=== PATIENT | female | born 1990 | race Caucasian/White ===

== ENCOUNTER 2017-05-07 15:51 | Inpatient (IN) | payer OTHER ==
[2017-05-07] MEDS: LACTATED RINGER'S 1,000 ML IV* ×3 (16:41→19:58)
[2017-05-07] MEDS ORDERED: LACTATED RINGER'S 1,000 ML IV* (18:00)
[2017-05-08] MEDS: LACTATED RINGER'S 1,000 ML IV* (02:42)
== END 2017-05-08 09:00 | disposition home or self-care (01) | DRG 782 ==
LOC: L-D 05-08 06:28 → OBT 15:51 → L-D 15:53 → OBT 17:50 → L-D 17:50
DX: O41.03X0 Oligohydramnios, third trimester, not applicable or unspecified (principal); Z3A.32 32 weeks gestation of pregnancy
CPT/HCPCS: 36415; 76816; 96360

== ENCOUNTER 2017-05-09 13:20 | Inpatient (IN) | payer OTHER ==
[2017-05-09] MEDS: LACTATED RINGER'S 1,000 ML IV ×4 (14:17→22:58)
[2017-05-09 17:37] LABS: ADD UMIC YES; UR ASCORBIC ACID NEGATIVE (NEGATIVE); UR BILIRUBIN (Dip) NEGATIVE (NEGATIVE); UR BLOOD (Dip) NEGATIVE (NEGATIVE); UR CLARITY CLEAR (CLEAR); UR COLOR COLORLESS (YELLOW); UR GLUCOSE (Dip) NEGATIVE (NEGATIVE); UR KETONES (Dip) TRACE mg/dL (NEGATIVE); UR LEUKOCYTE ESTERASE (Dip) 2+ Leu/ul (NEGATIVE); UR NITRITE (Dip) NEGATIVE (NEGATIVE); UR RBC 0 /HPF (0-5); UR SPECIFIC GRAVITY (Dip) 1.002 (1.003-1.030); UR TOTAL PROTEIN (Dip) NEGATIVE (NEGATIVE); UR UROBILINOGEN (Dip) NEGATIVE (NEGATIVE); UR WBC 2 /HPF (0-5)
[2017-05-10] MEDS: LACTATED RINGER'S 1,000 ML IV ×2 (05:13→11:53)
[2017-05-10] MEDS: FERROUS SULFATE (EC) 325 MG TAB PO (08:45)
[2017-05-10] MEDS: PRENATAL VITAMIN PO (08:46)
[2017-05-10] MEDS: BETAMET NA PHOS/AC(6 MG/ML) 5ML INJ IM (14:40)
[2017-05-10] MEDS: SOD CHLORIDE 0.9% 1,000 ML IV (18:50)
[2017-05-11] MEDS: SOD CHLORIDE 0.9% 1,000 ML IV ×4 (01:07→22:16)
[2017-05-11] MEDS: FERROUS SULFATE (EC) 325 MG TAB PO (09:45)
[2017-05-11] MEDS: PRENATAL VITAMIN PO (09:45)
[2017-05-11] MEDS: BETAMET NA PHOS/AC(6 MG/ML) 5ML INJ IM (14:37)
[2017-05-11] MEDS: LACTATED RINGER'S 1,000 ML IV (22:30)
[2017-05-12] MEDS: SOD CHLORIDE 0.9% 1,000 ML IV ×3 (04:34→17:25)
[2017-05-12] MEDS: LACTATED RINGER'S 1,000 ML IV ×4 (05:10→23:52)
[2017-05-12] MEDS: PRENATAL VITAMIN PO (09:05)
[2017-05-12] MEDS: FERROUS SULFATE (EC) 325 MG TAB PO (09:05)
[2017-05-13] MEDS: SOD CHLORIDE 0.9% 1,000 ML IV ×2 (00:20→07:00)
[2017-05-13] MEDS: LACTATED RINGER'S 1,000 ML IV (07:08)
[2017-05-13] MEDS: FERROUS SULFATE (EC) 325 MG TAB PO (08:38)
[2017-05-13] MEDS: PRENATAL VITAMIN PO (08:39)
== END 2017-05-13 11:42 | disposition home or self-care (01) | DRG 782 ==
LOC: PP1 13:20
DX: O41.03X0 Oligohydramnios, third trimester, not applicable or unspecified (principal); Z3A.32 32 weeks gestation of pregnancy
CPT/HCPCS: 76815; 76816; 76817; 76818; 81001; 87086

== ENCOUNTER 2017-05-23 16:56 | Inpatient (IN) | payer OTHER ==
[2017-05-23] MEDS ORDERED: AL HYDROX/MG HYDROX/SIMETH 30 ML CUP PO (17:30)
[2017-05-23] MEDS: LACTATED RINGER'S 1,000 ML IV (17:57)
[2017-05-24] MEDS: LACTATED RINGER'S 1,000 ML IV ×2 (00:39→06:47)
[2017-05-24] MEDS: FERROUS SULFATE (EC) 325 MG TAB PO (09:16)
[2017-05-24] MEDS: DOCUSATE SODIUM 100 MG CAP PO (09:16)
[2017-05-24] MEDS: PRENATAL VITAMIN PO (09:22)
== END 2017-05-24 13:10 | disposition home or self-care (01) | DRG 782 ==
LOC: PP1 16:56
DX: O41.03X0 Oligohydramnios, third trimester, not applicable or unspecified (principal); Z3A.29 29 weeks gestation of pregnancy
CPT/HCPCS: 76818

== ENCOUNTER 2017-05-26 09:01 | Outpatient (CLI) | payer OTHER | END 2017-05-26 11:20 | disposition home or self-care (01) | LOC: OBT 09:01 → L-D 09:03 → OBT 11:20 | DX: O41.03X0 Oligohydramnios, third trimester, not applicable or unspecified (principal); Z3A.34 34 weeks gestation of pregnancy | CPT/HCPCS: 76818; 99464 ==

== ENCOUNTER 2017-06-10 09:24 | Inpatient (IN) | payer OTHER ==
[2017-06-10] MEDS ORDERED: METHYLERGONOVINE 0.2 MG INJ IM (11:30)
[2017-06-10] MEDS ORDERED: CARBOPROST 250 MCG INJ IM (11:30)
[2017-06-10] MEDS ORDERED: OXYTOCIN 30 UNITS/LR 500 ML IV ×2 (11:30)
[2017-06-10] MEDS ORDERED: MISOPROSTOL 200 MCG TAB PR (11:30)
[2017-06-10] MEDS ORDERED: LIDOCAINE 1% (MPF) 30 ML INJ INJ (11:30)
[2017-06-10 11:50] LABS: ADD MAN DIFF? NO
[2017-06-10 11:51] LABS: WHITE BLOOD COUNT 8.4 10^3/ul (4.8-10.8)
[2017-06-10 11:51] LABS: BASOPHILS % 0.2 % (0.0-2.0); EOSINOPHILS % 0.1 % (0.0-7.0); HEMOGLOBIN 10.9 g/dl (12.0-16.0); LYMPHOCYTES # 1.4 10^3/ul (0.8-2.9); LYMPHOCYTES % 16.8 % (15.0-51.0); MEAN CORPUSCULAR HEMOGLOBIN 28.9 pg (29.0-33.0); MEAN CORPUSCULAR HGB CONC 32.1 g/dl (32.0-37.0); MEAN CORPUSCULAR VOLUME 90.2 fl (82.0-101.0); MEAN PLATELET VOLUME 11.5 fl (7.4-10.4); MONOCYTE # 0.4 10^3/ul (0.3-0.9); MONOCYTES % 4.5 % (0.0-11.0); NEUTROPHIL # 6.4 10^3/ul (1.6-7.5); PLATELET COUNT 194 10^3/UL (140-415); RED BLOOD COUNT 3.77 10^6/ul (4.20-5.40); RED CELL DISTRIBUTION WIDTH 21.3 % (11.5-14.5)
[2017-06-10 12:28] LABS: INR 0.86; PROTIME 11.8 Sec (11.9-14.9); PT RATIO 0.9
[2017-06-10 12:29] LABS: PARTIAL THROMBOPLASTIN TIME 25.5 Sec (25.0-35.0)
[2017-06-10 12:55] LABS: HEPATITIS B SURFACE ANTIGEN NEGATIVE (NEGATIVE)
[2017-06-10] MEDS: MISOPROSTOL 25 MCG CAPSULE PO ×3 (12:55→21:00)
[2017-06-10] MEDS: LACTATED RINGER'S 1,000 ML IV ×2 (12:55→18:49)
[2017-06-10 14:54] LABS: RAPID PLASMA REAGIN NONREACTIVE (NR)
[2017-06-10] MEDS: BUTORPHANOL 2 MG INJ IV (23:20)
[2017-06-11] MEDS: LACTATED RINGER'S 1,000 ML IV ×2 (00:58→01:48)
[2017-06-11] MEDS: MISOPROSTOL 25 MCG CAPSULE PO ×3 (01:00→09:00)
[2017-06-11] MEDS ORDERED: FENTAnyl 2MCG/ML-ROPIV 0.2% 100 ML (01:42)
[2017-06-11] MEDS ORDERED: NALOXONE (0.4 MG/ML) INJ IV (02:30)
[2017-06-11] MEDS: OXYTOCIN 30 UNITS/LR 500 ML IV ×2 (08:15→08:16)
[2017-06-11] MEDS: FENTAnyl 2MCG/ML-ROPIV 0.2% 100 ML BAG EPI (10:20)
[2017-06-11] MEDS: LACTATED RINGER'S 1,000 ML IV* (10:31)
[2017-06-11] MEDS ORDERED: HYDROCODONE/APAP (5/325) TAB PO (11:00)
[2017-06-11] MEDS ORDERED: OXYTOCIN 30 UNITS/LR 500 ML IV (11:00)
[2017-06-11] MEDS ORDERED: MISOPROSTOL 200 MCG TAB PR (11:00)
[2017-06-11] MEDS ORDERED: DIBUCAINE 1% 30 GM OINT PR (11:00)
[2017-06-11] MEDS ORDERED: ACETAMINOPHEN 325 MG TAB PO (11:00)
[2017-06-11] MEDS ORDERED: CARBOPROST 250 MCG INJ IM (11:00)
[2017-06-11] MEDS ORDERED: METHYLERGONOVINE 0.2 MG INJ IM (11:00)
[2017-06-11] MEDS: BENZOCAINE 20% 56 ML SPRAY TOP (11:40)
[2017-06-11] MEDS: WITCH HAZEL/GLYCERIN PAD PR (11:40)
[2017-06-11] MEDS: LANOLIN 7 GM TUBE TOP (11:40)
[2017-06-11] MEDS: IBUPROFEN 600 MG TAB PO ×3 (11:40→23:33)
[2017-06-11] MEDS: MEASLES,MUMPS,RUBELLA VACCINE INJ SC* (18:11)
[2017-06-11] MEDS: SENNA/DOCUSATE NA (8.6MG/50MG) TAB PO (21:04)
[2017-06-12] MEDS: IBUPROFEN 600 MG TAB PO ×4 (05:47→23:47)
[2017-06-12 07:45] LABS: ADD MAN DIFF? NO
[2017-06-12 07:55] LABS: BASOPHILS % 0.3 % (0.0-2.0); EOSINOPHILS # 0.1 10^3/ul (0.0-0.5); EOSINOPHILS % 0.4 % (0.0-7.0); HEMATOCRIT 35.1 % (37.0-47.0); HEMOGLOBIN 11.3 g/dl (12.0-16.0); LYMPHOCYTES # 1.9 10^3/ul (0.8-2.9); LYMPHOCYTES % 15.8 % (15.0-51.0); MEAN CORPUSCULAR HEMOGLOBIN 28.9 pg (29.0-33.0); MEAN CORPUSCULAR HGB CONC 32.2 g/dl (32.0-37.0); MEAN CORPUSCULAR VOLUME 89.8 fl (82.0-101.0); MEAN PLATELET VOLUME 11.2 fl (7.4-10.4); MONOCYTE # 0.6 10^3/ul (0.3-0.9); MONOCYTES % 5.3 % (0.0-11.0); NEUTROPHIL # 9.1 10^3/ul (1.6-7.5); NEUTROPHILS % 77.5 % (39.0-77.0); PLATELET COUNT 195 10^3/UL (140-415); RED BLOOD COUNT 3.91 10^6/ul (4.20-5.40); RED CELL DISTRIBUTION WIDTH 21.2 % (11.5-14.5)
[2017-06-12 07:55] LABS: WHITE BLOOD COUNT 11.7 10^3/ul (4.8-10.8)
[2017-06-12] MEDS: SENNA/DOCUSATE NA (8.6MG/50MG) TAB PO ×2 (08:24→21:41)
[2017-06-12] MEDS ORDERED: INFLUENZA VIRUS VACCINE 0.5 ML (DISPENSING) IM* (09:00)
[2017-06-13] MEDS: IBUPROFEN 600 MG TAB PO (05:46)
[2017-06-13] MEDS: SENNA/DOCUSATE NA (8.6MG/50MG) TAB PO (09:00)
[2017-06-13] MEDS ORDERED: DIPHTH/TET/ACEL PERTUSS (ADULT) 0.5 ML VIAL IM* (09:00)
== END 2017-06-13 13:20 | disposition home or self-care (01) | DRG 775 ==
LOC: L-D 09:24 → PP1 06-11 10:57 → L-D 09:37
PROVIDERS: Obstetrics & Gynecology
PROC: 10E0XZZ Delivery of Products of Conception, External Approach (ICD-10-PCS; principal; 2017-06-11)
PROC: 0HQ9XZZ Repair Perineum Skin, External Approach (ICD-10-PCS; 2017-06-11)
PROC: 3E033VJ Introduction of Other Hormone into Peripheral Vein, Percutaneous Approach (ICD-10-PCS; 2017-06-11)
DX: O41.03X0 Oligohydramnios, third trimester, not applicable or unspecified (principal); O70.0 First degree perineal laceration during delivery; Z3A.37 37 weeks gestation of pregnancy; Z37.0 Single live birth
CPT/HCPCS: 62319; 85025; 85610; 85730; 86592; 86850; 86900; 86901; 87340; 88307; 90686; 99464